=== PATIENT | female | born 1930 | race African-American/Black ===

== ENCOUNTER 2016-12-23 14:26 | Inpatient (IN) | payer OTHER, MEDICAID ==
[~2016-12-23] VITALS: Ht 165.1 cm; Wt 68.0 kg
[2016-12-23 15:29] LABS: PLATELET COUNT 205 x10^3mcL (130-400)
[2016-12-23 15:39] LABS: RED CELL DISTRIBUTION WIDTH 17.7 % (11.5-14.5)
[2016-12-23 15:46] LABS: CALCIUM 9.4 mg/dL (8.5-10.1); CARBON DIOXIDE 26.1 mmol/L (21-32); CHLORIDE SERUM 104 mmol/L (98-107); CREATININE SERUM 1.1 mg/dL (0.6-1.0); GLUCOSE SERUM 137 mg/dL (74-106); POTASSIUM SERUM 3.7 mmol/L (3.5-5.1); SODIUM SERUM 140 mmol/L (136-145)
[2016-12-23 15:56] LABS: ALKALINE PHOSPHATASE 105 U/L (46-116); ALT/SGPT 47 U/L (14-59); AST/SGOT 78 U/L (15-37); BILIRUBIN TOTAL 2.6 mg/dL (0.20-1.00); TOTAL PROTEIN, SERUM 7.9 g/dL (6.4-8.2)
[2016-12-23 15:58] LABS: ALBUMIN 2.4 g/dL (3.4-5.0)
[2016-12-23 16:20] LABS: MONOCYTE 5 % (0-7); rbc morphology (normal/abnorm) ABNORMAL (NORMAL); target cell (codocyte) 1+; tear drop cell (dacryocyte) 1+
[2016-12-23 16:21] LABS: BAND NEUTROPHIL 1 % (0-10)
[2016-12-23 16:22] LABS: SEGMENTED NEUTROPHILS 88 % (37-75)
[2016-12-23 17:17] LABS: CK-MB 0.6 ng/mL (0-3.6)
[2016-12-23] MEDS ORDERED: CARVEDILOL3.125 M1 PO (17:45)
[2016-12-23] MEDS ORDERED: DILTIAZEM HCL120 M2 PO (17:45)
[2016-12-23] MEDS ORDERED: HALOPERIDOL2 MG PO (17:45)
[2016-12-23] MEDS ORDERED: POTASSIUM99 M1 PO (17:47)
[2016-12-23] MEDS ORDERED: GELNIQUE100 MG/GM PO (17:47)
[2016-12-23] MEDS ORDERED: DIGOXIN0.125 M1 PO (17:47)
[2016-12-23] MEDS ORDERED: FUROSEMIDE20 MG IV (17:47)
[2016-12-23] MEDS ORDERED: CATAPRES0.1 MG PO (17:48)
[2016-12-23] MEDS ORDERED: COU1 PO (17:48)
[2016-12-23] MEDS ORDERED: CITALOPRAM HYDR10 M1 PO (17:48)
[2016-12-23] MEDS ORDERED: LUMIGAN2.5 M1 OP (17:49)
[2016-12-23] MEDS ORDERED: ZITHROMAX1 GM/Packe (17:49)
[2016-12-23 18:56] VITALS: BP 167/90
[2016-12-23 18:58] LABS: MAGNESIUM 2.4 mg/dL (1.8-2.4)
[2016-12-23 19:04] VITALS: Ht 165.1 cm; Wt 68.0 kg
[2016-12-23 19:05] LABS: FREE T4 2.38 ng/dL (0.76-1.46); FREE THYROXINE INDEX 4.9 ug/dL (1.4-4.5); T4(THYROXINE) 10.8 ug/dL (4.7-13.3)
[2016-12-23 19:12] LABS: CHOLESTEROL/HDL RATIO 2.6
[2016-12-23 20:28] LABS: T3 TOTAL 1.64 ng/mL
[2016-12-23 21:00] VITALS: BP 167/90
[2016-12-23 22:20] VITALS: BP 154/80
[2016-12-24 06:17] LABS: BASOPHIL % 0.1 % (0-2); PLATELET COUNT 207 x10^3mcL (130-400)
[2016-12-24 06:20] VITALS: BP 143/74
[2016-12-24 06:22] LABS: RED CELL DISTRIBUTION WIDTH 17.7 % (11.5-14.5)
[2016-12-24 06:50] LABS: CARBON DIOXIDE 26.2 mmol/L (21-32); CHLORIDE SERUM 104 mmol/L (98-107); CREATININE SERUM 0.9 mg/dL (0.6-1.0); GLUCOSE SERUM 85 mg/dL (74-106); POTASSIUM SERUM 3.7 mmol/L (3.5-5.1); SODIUM SERUM 141 mmol/L (136-145)
[2016-12-24 10:00] VITALS: BP 156/72
[2016-12-24 14:00] VITALS: BP 123/65
[2016-12-24 16:10] LABS: UA SPECIFIC GRAVITY 1.015 (1.005-1.035); microscopic required? YES; urine erythrocyte 2+ (NEGATIVE)
[2016-12-24 17:28] VITALS: BP 140/70
[2016-12-24 21:14] VITALS: BP 139/73
[2016-12-25 06:03] VITALS: BP 113/80
[2016-12-25 06:22] LABS: BASOPHIL % 0.2 % (0-2); PLATELET COUNT 235 x10^3mcL (130-400)
[2016-12-25 06:27] LABS: CALCIUM 8.9 mg/dL (8.5-10.1); CARBON DIOXIDE 29.4 mmol/L (21-32); CHLORIDE SERUM 105 mmol/L (98-107); CREATININE SERUM 0.9 mg/dL (0.6-1.0); GLUCOSE SERUM 99 mg/dL (74-106); POTASSIUM SERUM 3.5 mmol/L (3.5-5.1); SODIUM SERUM 141 mmol/L (136-145)
[2016-12-25 06:43] LABS: RED CELL DISTRIBUTION WIDTH 17.6 % (11.5-14.5)
[2016-12-25 09:25] VITALS: BP 153/66
[2016-12-25 14:46] VITALS: BP 135/72
[2016-12-25 17:36] VITALS: BP 125/62
[2016-12-25 22:42] VITALS: BP 175/75
[2016-12-26] VITALS (9 sets, daily range): BP systolic 149–209; BP diastolic 59–117
[2016-12-26 06:27] LABS: BASOPHIL % 0.2 % (0-2); PLATELET COUNT 234 x10^3mcL (130-400)
[2016-12-26 06:38] LABS: CALCIUM 8.8 mg/dL (8.5-10.1); CARBON DIOXIDE 30.7 mmol/L (21-32); CHLORIDE SERUM 106 mmol/L (98-107); CREATININE SERUM 0.8 mg/dL (0.6-1.0); GLUCOSE SERUM 101 mg/dL (74-106); POTASSIUM SERUM 3.1 mmol/L (3.5-5.1); SODIUM SERUM 141 mmol/L (136-145)
[2016-12-26 06:55] LABS: RED CELL DISTRIBUTION WIDTH 17.9 % (11.5-14.5)
[2016-12-27] VITALS (9 sets, daily range): BP systolic 122–166; BP diastolic 57–75
[2016-12-27 06:49] LABS: BASOPHIL % 0.8 % (0-2); PLATELET COUNT 243 x10^3mcL (130-400)
[2016-12-27 06:57] LABS: RED CELL DISTRIBUTION WIDTH 17.5 % (11.5-14.5)
[2016-12-27 07:01] LABS: CALCIUM 8.4 mg/dL (8.5-10.1); CHLORIDE SERUM 106 mmol/L (98-107); CREATININE SERUM 0.7 mg/dL (0.6-1.0); GLUCOSE SERUM 94 mg/dL (74-106); MAGNESIUM 1.8 mg/dL (1.8-2.4); PHOSPHOROUS 2.7 mg/dL (2.5-4.9); POTASSIUM SERUM 3.2 mmol/L (3.5-5.1); SODIUM SERUM 141 mmol/L (136-145)
[2016-12-27 08:15] LABS: RED BLOOD CELLS 4.08 M/mm3 (4.10-5.10)
[2016-12-27 08:21] LABS: IRON 28 ug/dL (50-170); TOTAL IRON BINDING CAPACITY 152 ug/dL (250-450)
[2016-12-28] VITALS (7 sets, daily range): BP systolic 130–180; BP diastolic 63–90
[2016-12-28 07:34] LABS: CALCIUM 8.3 mg/dL (8.5-10.1); CARBON DIOXIDE 29.5 mmol/L (21-32); CHLORIDE SERUM 107 mmol/L (98-107); CREATININE SERUM 0.8 mg/dL (0.6-1.0); GLUCOSE SERUM 111 mg/dL (74-106); POTASSIUM SERUM 3.4 mmol/L (3.5-5.1); SODIUM SERUM 141 mmol/L (136-145)
[2016-12-28 07:40] LABS: BASOPHIL % 0.3 % (0-2); PLATELET COUNT 254 x10^3mcL (130-400)
[2016-12-28 07:43] LABS: RED CELL DISTRIBUTION WIDTH 17.4 % (11.5-14.5)
[2016-12-29 05:16] VITALS: BP 160/75
[2016-12-29 06:30] LABS: CALCIUM 8.6 mg/dL (8.5-10.1); CARBON DIOXIDE 29.6 mmol/L (21-32); CHLORIDE SERUM 101 mmol/L (98-107); CREATININE SERUM 0.8 mg/dL (0.6-1.0); GLUCOSE SERUM 89 mg/dL (74-106); MAGNESIUM 1.8 mg/dL (1.8-2.4); PHOSPHOROUS 3.4 mg/dL (2.5-4.9); POTASSIUM SERUM 3.6 mmol/L (3.5-5.1); SODIUM SERUM 137 mmol/L (136-145)
[2016-12-29 07:44] LABS: BASOPHIL % 0.2 % (0-2); PLATELET COUNT 258 x10^3mcL (130-400)
[2016-12-29 07:52] LABS: RED CELL DISTRIBUTION WIDTH 17.8 % (11.5-14.5)
[2016-12-29 08:06] VITALS: BP 175/71
[2016-12-29 10:19] VITALS: BP 175/71
[2016-12-29 14:20] VITALS: BP 158/66
[2016-12-29] MEDS ORDERED: COUMADIN2 MG PO (14:33)
[2016-12-29 17:42] VITALS: BP 158/66
[2016-12-29 17:48] VITALS: BP 163/75
[2016-12-29] MEDS ORDERED: LEVAQUIN750 MG IV (17:50)
[2016-12-29] MEDS ORDERED: CLEOCIN HCL150 MG IV (17:50)
[2016-12-29] MEDS ORDERED: LEVAQUIN IV (18:01)
[2016-12-29] MEDS ORDERED: CLEOCIN HCL IV (18:01)
== END 2016-12-29 18:35 | DRG 871 ==
LOC: ED 14:26 → DU 17:36
PROVIDERS: Emergency Medicine; Family Medicine; ADMIT Family Medicine
DX: A41.9 Sepsis, unspecified organism (principal); J69.0 Pneumonitis due to inhalation of food and vomit; I50.43 Acute on chronic combined systolic (congestive) and diastolic (congestive) heart failure; E43 Unspecified severe protein-calorie malnutrition; N17.0 Acute kidney failure with tubular necrosis; D68.69 Other thrombophilia; I16.1 Hypertensive emergency; E86.0 Dehydration; E11.9 Type 2 diabetes mellitus without complications; E87.6 Hypokalemia; R65.20 Severe sepsis without septic shock; I48.2 Chronic atrial fibrillation; E80.6 Other disorders of bilirubin metabolism; H40.9 Unspecified glaucoma; E05.90 Thyrotoxicosis, unspecified without thyrotoxic crisis or storm; F31.9 Bipolar disorder, unspecified; I27.2 Other secondary pulmonary hypertension; R32 Unspecified urinary incontinence; M85.89 Other specified disorders of bone density and structure, multiple sites; Z95.2 Presence of prosthetic heart valve; Z68.25 Body mass index [BMI] 25.0-25.9, adult
CPT/HCPCS: 36600; 82962; 83880; 84439; 94150; 97110-GP; 97116-GP; 97530-GP; J0360; J1940; J1956; J3480; J3490; J7030; J7620; Q0092